=== PATIENT | female | born 1985 | race Caucasian/White ===

== ENCOUNTER 2017-02-08 20:21 | Outpatient (CLI) | payer SELFPAY ==
[2017-02-08 20:45] VITALS: BP 110/73
[2017-02-08] MEDS ORDERED: LACTATED RINGERS 1,000 ML ONE (21:04)
[2017-02-08] MEDS ORDERED: LACTATED RINGERS 1,000 ML IV ONE (22:02)
[2017-02-08 22:43] LABS: Bilirubin,Urine NEG (Negative); Blood,Urine MOD (Negative); Ketones,Urine NEG (Negative); Leukocyte Esterase,Urine NEG (Negative); Nitrite,Urine NEG (Negative); Protein,Urine <15 mg/dL mg/dL (Negative); RBC,Urine < 1.0 /HPF (0.0-6.0); Urobilinogen,Urine < 2.0 mg/dL (<2.0); WBC,Urine < 1.0 /HPF (0.0-6.0)
[2017-02-08] MEDS ORDERED: ROCEPHIN/NS 1 GM/50 ML 1 GM/50 ML BAG IV ONE (22:50)
== END 2017-02-08 23:50 | disposition home or self-care (01) ==
LOC: TRG 20:21
PROVIDERS: ATTEND Obstetrics & Gynecology
DX: O21.2 Late vomiting of pregnancy (principal); O26.892 Other specified pregnancy related conditions, second trimester; R50.9 Fever, unspecified; Z3A.26 26 weeks gestation of pregnancy
CPT/HCPCS: 59025; 81001; 96360; 96361; 96365; J0696; J7120

== ENCOUNTER 2017-03-01 02:31 | Inpatient (IN) | payer OTHER ==
[2017-03-01] MEDS ORDERED: LACTATED RINGERS 1,000 ML ONE (02:47)
[2017-03-01] MEDS ORDERED: LACTATED RINGERS 1,000 ML IV ONE (02:57)
[2017-03-01] MEDS ORDERED: TYLENOL PO ONE (02:58)
[2017-03-01] MEDS ORDERED: ZOFRAN IV ONE (02:58)
[2017-03-01] MEDS: LACTATED RINGERS 1,000 ML IV SCH ×4 (03:20→20:07)
[2017-03-01 03:55] LABS: Hematocrit 31.9 % (30.3-42.9); Hemoglobin 10.8 gm/dl (10.1-14.3); Mean Corpuscular HGB Conc 34 % (30-34); Mean Corpuscular Hemoglobin 32 pg (28-32); Mean Corpuscular Volume 94 fl (79-97); Platelet Count 177 K/mm3 (140-440); Red Blood Count 3.42 M/mm3 (3.65-5.03); Red Cell Distribution Width 13.4 % (13.2-15.2)
[2017-03-01 04:00] LABS: White Blood Count 21.2 K/mm3 (4.5-11.0)
[2017-03-01] MEDS ORDERED: Fluarix Quad 2017-2018(36 MOS+) IM ONE (04:11)
[2017-03-01] MEDS ORDERED: MYLICON PO PRN (04:14)
[2017-03-01] MEDS ORDERED: COLACE PO PRN (04:14)
[2017-03-01] MEDS ORDERED: XYLOCAINE 1% MPF 5 mL INFILTRATI ONE (04:18)
--- NOTE | 2017-03-01 04:24 | History and Physical Report ---
History of Present Illness Date of examination: 03/01/17 Chief complaint: Fever and chills History of present illness: 32-year-old 0-21 at 29+3 weeks presents with the above complaints since, she is a [facility]. Since her history is patient with sudden onset of vomiting, fever and chills on Tuesday night (~ 24 hrs ago). She denies diarrhea, no dysuria, no other family member are ill. She was seen here in the hospital on 02/08/2017 with similar complaints, she was discharged on Macrobid. She denies loss of fluid, vaginal bleeding or contractions Past History Past Medical History: no pertinent history Past Surgical History: no surgical history [employer]ING [employer]CH[employer]IAN History: denies: chlamydia, gonorrhea, hepatitis B, hepatitis C, herpes, HIV , syphilis, trichomonas Social history: single, full code. denies: smoking, alcohol abuse, prescription drug abuse, IV drug use - Obstetrical History Expected Date of Delivery: 05/14/17 Actual Gestation: 29 Week(s) 3 Day(s) : 4 Para: 1 Medications and Allergies Allergies Allergy/AdvReac Type Severity Reaction Status Date / Time b complex AdvReac Hives Uncoded 03/01/17 04:13 Home Medications Medication Instructions Recorded Confirmed Last Taken Type Acetaminophen [Shake That Ache] 500 mg PO PRN 03/01/17 03/01/17 02/28/17 History Vit-Fe Fumar-FA [ 1 tab PO QDAY 03/01/17 03/01/17 Unknown History Vitamin] Active Meds: Active Medications Acetaminophen (Tylenol) 650 mg PO Q4H PRN PRN Reason: Pain MILD(1-3)/Fever >100.5/GOMEZ Ceftriaxone Sodium (Rocephin) 1 gm IV Q24HR WICHO PRN Reason: Protocol Docusate Sodium (Colace) 100 mg PO Q12H PRN PRN Reason: Constipation Lactated Ringer's (Lactated Ringers) 1,000 mls @ 125 mls/hr IV DIRECT WICHO Last Admin: 03/01/17 03:20 Dose: 125 mls/hr Influenza Virus Vaccine Quadrival (Fluarix Quad [id number](36 Mos+)) 0.5 ml IM .ONCE ONE Stop: 03/01/17 04:12 Lidocaine (Xylocaine 1% Mpf 5 Ml) 2 ml INFILTRATI ONCE ONE Stop: 03/01/17 04:19 Multivitamins/Iron/Calcium ( Vitamin) 1 each PO QDAY WICHO Simethicone (Mylicon) 80 mg PO Q6H PRN PRN Reason: Gas pain Review of Systems Constitutional: fever, chills, malaise, no weakness Cardiovascular: no chest pain, no lightheadedness, no shortness of breath Respiratory: no cough with sputum, no excessive sputum, no shortness of breath, no dyspnea on exertion Gastrointestinal: nausea, vomiting, no abdominal pain, no diarrhea Genitourinary: no vaginal bleeding, no vaginal discharge, no leakage of fluid Musculoskeletal: neck stiffness - Vital Signs Vital signs: Vital Signs Temp Resp 103.2 F H 40 H 03/01/17 02:41 03/01/17 02:41 Temp Pulse Resp BP Pulse Ox 102.0 F H 136 H 38 H 94/48 98 03/01/17 03:44 03/01/17 04:01 03/01/17 03:44 03/01/17 03:54 03/01/17 04:01 - Physical Exam Cardiovascular: Normal S1, Normal S2, Other (tachycardia) Lungs: Positive: Clear to auscultation, Normal air movement Abdomen: Positive: normal appearance, soft. Negative: distention, tenderness, guarding, rigidity Uterus: Positive: enlarged (EFW ~ 2000). Negative: tender - Obstetrical FHR: category 2 Results Result Diagrams: 03/01/17 03:10 Abnormal lab results 03/01/17 Range/Units 03:10 WBC 21.2 H (4.5-11.0) K/mm3 RBC 3.42 L (3.65-5.03) M/mm3 All other labs normal. Assessment and Plan A: 32-year-old at 29+wks with fever and chills ?Flu ?UTI -Cat 2 tracing w/ tachycardia Issues -[place]awk speaker only -Fever and chills P: -Admit -Obtain labs including urine and blood culture -Rapid flu swab -IV Rocephin -IV fluids and antipyretics -Disposition after results available - Patient Problems (1) 29 weeks gestation of Current Visit: Yes Status: Acute (2) Fever and chills Current Visit: Yes Status: Acute
[2017-03-01 04:29] LABS: Bilirubin,Urine NEG (Negative); Blood,Urine NEG (Negative); Ketones,Urine 80 mg/dL (Negative); Leukocyte Esterase,Urine NEG (Negative); Mucus,Urine 2+ /HPF; Nitrite,Urine NEG (Negative)
[2017-03-01 04:31] LABS: Protein,Urine >500 mg/dL (Negative)
[2017-03-01] MEDS: ROCEPHIN/NS 1 GM/50 ML 1 GM/50 ML BAG IV SCH (05:00)
[2017-03-01 05:41] LABS: Anisocytosis 1+; Basophils % (Manual) 0 % (0.0-1.8); Blastocytes % (Manual) 0 %; Eosinophils % (Manual) 0 % (0.0-4.3); Stomatocytes Few
[2017-03-01 05:42] LABS: Diff Status Complete
[2017-03-01] MEDS: TYLENOL PO PRN ×3 (09:46→23:56)
[2017-03-01] MEDS ORDERED: ROCEPHIN IV SCH (10:00)
[2017-03-01] MEDS: TAMIFLU PO SCH ×2 (14:44→22:00)
[2017-03-01] MEDS: PRENATAL VITAMIN PO SCH (18:08)
[2017-03-02] MEDS: LACTATED RINGERS 1,000 ML IV SCH ×3 (03:59→22:01)
[2017-03-02] MEDS: ROCEPHIN/NS 1 GM/50 ML 1 GM/50 ML BAG IV SCH (04:58)
[2017-03-02] MEDS: TYLENOL PO PRN ×2 (08:17→21:54)
[2017-03-02] MEDS ORDERED: ZOFRAN ONE (10:44)
[2017-03-02] MEDS: TAMIFLU PO SCH ×2 (10:47→21:51)
[2017-03-02] MEDS: PRENATAL VITAMIN PO SCH (10:48)
[2017-03-02] MEDS ORDERED: ZOFRAN IV PRN (11:00)
--- NOTE | 2017-03-02 11:04 | Progress Note ---
Assessment and Plan - Patient Problems (1) 29 weeks gestation of Onset Date: 03/02/17 Current Visit: Yes Status: Acute Plan to address problem: A: IUP @ 29 4/7 weeks Suspected Influenza - improved P: Continue present management Anticipate discharge in 24hrs if remains afebrile (2) Fever and chills Onset Date: 03/02/17 Current Visit: Yes Status: Acute Subjective - Subjective Date of service: 03/02/17 Principal diagnosis: IUP @ 29 4/7 weeks; Suspected Influenza Interval history: No complaints. Feeling a bit better Patient reports: movement normal, no new complaints, no loss of fluid, no vaginal bleeding, no contractions Objective - Vital Signs Vital Signs: Vital Signs - 12hr 03/01/17 03/02/17 03/02/17 23:56 05:00 07:33 Temperature 97.6 F Pulse Rate 114 H Respiratory 18 Rate Blood Pressure O2 Sat by Pulse 99 Oximetry 03/02/17 03/02/17 03/02/17 07:34 07:35 07:38 Temperature 99.7 F H Pulse Rate 110 H 111 H 111 H Respiratory 28 H Rate Blood Pressure 104/67 104/67 O2 Sat by Pulse 99 Oximetry 03/02/17 03/02/17 03/02/17 07:43 07:48 07:53 Temperature Pulse Rate 117 H 68 117 H Respiratory Rate Blood Pressure O2 Sat by Pulse 97 97 100 Oximetry 03/02/17 03/02/17 03/02/17 07:58 08:03 08:08 Temperature Pulse Rate 111 H 114 H 112 H Respiratory Rate Blood Pressure O2 Sat by Pulse 100 99 99 Oximetry 03/02/17 03/02/17 03/02/17 08:13 08:31 08:36 Temperature Pulse Rate 117 H 110 H 110 H Respiratory Rate Blood Pressure O2 Sat by Pulse 99 99 97 Oximetry 03/02/17 03/02/17 03/02/17 08:41 08:45 08:46 Temperature Pulse Rate 111 H 109 H 115 H Respiratory Rate Blood Pressure O2 Sat by Pulse 97 94 95 Oximetry 03/02/17 03/02/17 03/02/17 08:51 08:54 08:56 Temperature Pulse Rate 107 H 109 H 109 H Respiratory Rate Blood Pressure O2 Sat by Pulse 96 94 98 Oximetry 03/02/17 03/02/17 03/02/17 09:02 09:07 09:11 Temperature Pulse Rate 111 H 109 H 107 H Respiratory Rate Blood Pressure O2 Sat by Pulse 97 96 94 Oximetry 03/02/17 03/02/17 03/02/17 09:12 09:17 09:22 Temperature Pulse Rate 111 H 119 H 116 H Respiratory Rate Blood Pressure O2 Sat by Pulse 95 95 95 Oximetry 03/02/17 03/02/17 03/02/17 09:27 09:36 09:41 Temperature Pulse Rate 115 H 108 H 117 H Respiratory Rate Blood Pressure O2 Sat by Pulse 94 97 96 Oximetry 03/02/17 03/02/17 03/02/17 09:46 09:54 09:59 Temperature Pulse Rate 109 H 109 H 102 H Respiratory Rate Blood Pressure O2 Sat by Pulse 96 97 97 Oximetry 03/02/17 03/02/17 03/02/17 10:04 10:14 10:19 Temperature Pulse Rate 106 H 100 H 105 H Respiratory Rate Blood Pressure O2 Sat by Pulse 98 98 97 Oximetry 03/02/17 03/02/17 03/02/17 10:24 10:29 10:34 Temperature Pulse Rate 100 H 104 H 97 H Respiratory Rate Blood Pressure O2 Sat by Pulse 97 97 96 Oximetry 03/02/17 03/02/17 03/02/17 10:39 10:44 10:49 Temperature Pulse Rate 96 H 94 H 104 H Respiratory Rate Blood Pressure O2 Sat by Pulse 97 96 97 Oximetry 03/02/17 03/02/17 10:54 10:59 Temperature Pulse Rate 112 H 104 H Respiratory Rate Blood Pressure O2 Sat by Pulse 98 99 Oximetry - Exam Cardiovascular: Regular rate Lungs: Clear to auscultation Abdomen: Present: normal appearance, soft Uterus: Present: normal FHR: category 1 Uterine Contraction Monitor Mode: External - Labs Labs: Abnormal Labs 03/01/17 03:10 WBC 21.2 H RBC 3.42 L Lymphocytes % (Manual) 7.0 L Seg Neutrophils # Man 14.6 H Monocytes # (Manual) 1.1 H Laboratory Tests 03/01/17 03/01/17 03/01/17 03:10 03:10 04:45 WBC 21.2 H RBC 3.42 L Hgb 10.8 Hct 31.9 MCV 94 MCH 32 MCHC 34 RDW 13.4 Plt Count 177 Add Manual Diff Complete Total Counted 100 Seg Neuts % (Manual) 69.0 Band Neutrophils % 19.0 Lymphocytes % (Manual) 7.0 L Reactive Lymphs % (Man) 0 Monocytes % (Manual) 5.0 Eosinophils % (Manual) 0 Basophils % (Manual) 0 Metamyelocytes % 0 Myelocytes % 0 Promyelocytes % 0 Blast Cells % 0 Nucleated RBC % Not Reportable Seg Neutrophils # Man 14.6 H Band Neutrophils # 4.0 Lymphocytes # (Manual) 1.5 Abs React Lymphs (Man) 0.0 Monocytes # (Manual) 1.1 H Eosinophils # (Manual) 0.0 Basophils # (Manual) 0.0 Metamyelocytes # 0.0 Myelocytes # 0.0 Promyelocytes # 0.0 Blast Cells # 0.0 WBC Morphology Not Reportable Hypersegmented Neuts Not Reportable Hyposegmented Neuts Not Reportable Hypogranular Neuts Not Reportable Smudge Cells Not Reportable Toxic Granulation Not Reportable Toxic Vacuolation Not Reportable Dohle Bodies Not Reportable Pelger-Huet Anomaly Not Reportable Reyes Rods Not Reportable Platelet Estimate Appears normal Clumped Platelets Not Reportable Plt Clumps, EDTA Not Reportable Large Platelets Not Reportable Giant Platelets Not Reportable Platelet Satelliting Not Reportable Plt Morphology Comment Not Reportable RBC Morphology Not Reportable Dimorphic RBCs Not Reportable Polychromasia Not Reportable Hypochromasia Not Reportable Poikilocytosis Not Reportable Anisocytosis 1+ Microcytosis Not Reportable Macrocytosis Not Reportable Spherocytes Not Reportable Pappenheimer Bodies Not Reportable Sickle Cells Not Reportable Target Cells Not Reportable Tear Drop Cells Not Reportable Ovalocytes Not Reportable Stomatocytes Few Helmet Cells Not Reportable [place] Bodies Not Reportable [place] Rings Not Reportable [place] Cells Not Reportable Bite Cells Not Reportable Crenated Cell Not Reportable Elliptocytes Not Reportable Acanthocytes (Spur) Not Reportable Rouleaux Not Reportable Hemoglobin C Crystals Not Reportable Schistocytes Not Reportable Malaria parasites Not Reportable Anton Bodies Not Reportable Hem Pathologist Commnt No Urine Color Lexie Urine Turbidity Clear Urine pH 6.0 Ur Specific [place] 1.024 Urine Protein >500 Urine Glucose (UA) Neg Urine Ketones 80 Urine Blood Neg Urine Nitrite Neg Urine Bilirubin Neg Urine Urobilinogen 2.0 Ur Leukocyte Esterase Neg Urine WBC (Auto) 6.0 Urine RBC (Auto) 2.0 U Epithel Cells (Auto) 7.0 Hyaline Casts 1 Urine Mucus 2+ Blood Type O POSITIVE Antibody Screen Negative 03/02/17 13:55 WBC 8.1 RBC 3.02 L Hgb 9.7 L Hct 28.2 L MCV 93 MCH 32 MCHC 35 H RDW 13.5 Plt Count 152 Add Manual Diff Total Counted Seg Neuts % (Manual) Band Neutrophils % Lymphocytes % (Manual) Reactive Lymphs % (Man) Monocytes % (Manual) Eosinophils % (Manual) Basophils % (Manual) Metamyelocytes % Myelocytes % Promyelocytes % Blast Cells % Nucleated RBC % Seg Neutrophils # Man Band Neutrophils # Lymphocytes # (Manual) Abs React Lymphs (Man) Monocytes # (Manual) Eosinophils # (Manual) Basophils # (Manual) Metamyelocytes # Myelocytes # Promyelocytes # Blast Cells # WBC Morphology Hypersegmented Neuts Hyposegmented Neuts Hypogranular Neuts Smudge Cells Toxic Granulation Toxic Vacuolation Dohle Bodies Pelger-Huet Anomaly Reyes Rods Platelet Estimate Clumped Platelets Plt Clumps, EDTA Large Platelets Giant Platelets Platelet Satelliting Plt Morphology Comment RBC Morphology Dimorphic RBCs Polychromasia Hypochromasia Poikilocytosis Anisocytosis Microcytosis Macrocytosis Spherocytes Pappenheimer Bodies Sickle Cells Target Cells Tear Drop Cells Ovalocytes Stomatocytes Helmet Cells [place] Bodies [place] Rings Mica Cells Bite Cells Crenated Cell Elliptocytes Acanthocytes (Spur) Rouleaux Hemoglobin C Crystals Schistocytes Malaria parasites Anton Bodies Hem Pathologist Commnt Urine Color Urine Turbidity Urine pH Ur Specific [place] Urine Protein Urine Glucose (UA) Urine Ketones Urine Blood Urine Nitrite Urine Bilirubin Urine Urobilinogen Ur Leukocyte Esterase Urine WBC (Auto) Urine RBC (Auto) U Epithel Cells (Auto) Hyaline Casts Urine Mucus Blood Type Antibody Screen Microbiology 03/01/17 03:10 Urine,Catheterized - Straight Catheter Urine Culture - Preliminary NO GROWTH AFTER 24 HOURS 03/01/17 04:13 Peripheral/Venous Blood Culture - Preliminary NO GROWTH AFTER 24 HOURS 03/01/17 04:37 Peripheral/Venous Blood Culture - Preliminary NO GROWTH AFTER 24 HOURS
--- NOTE | 2017-03-02 12:48 | Admit Criteria Form ---
Admission Criteria Documentation: OBSTETRIC AND GYNECOLOGIC DISEASE GRG Clinical Indications for Admission to Inpatient Care (Place 'X' for any and all applicable criteria): Hospital admission is needed for appropriate care of the patient because of 1 or more of the following (1)(2)(3): [ ]I. Hemodynamic instability, as indicated by 1 or more of the following (1)( 2)(3)(4)(5): [ ]a) Vital signs or other findings not as expected for chronic patient condition or baseline [ ]b) Instability indicated by 1 or more of the following: [ ]i) Hypotension [ ]ii) Symptomatic tachycardia unresponsive to treatment (eg, analgesia, fluids, sedation as indicated) [ ]iii) Inadequate perfusion indicated by 1 or more of the following: [ ]A. Lactic acidosis (greater than 2 mmol/ L) [ ]B. New abnormal capillary refill ( greater than 3 seconds) [ ]C. Reduced urine output [ ]D. New altered mental status [ ]iv) Orthostatic vital sign changes unresponsive to treatment (eg, fluids) [ ]v) Multiple IV fluid boluses required to maintain adequate blood pressure or perfusion [ ]vi) IV inotropic or vasopressor medication required to maintain adequate blood pressure or perfusion [ ]II. Obstetric infection requiring hospitalization indicated by 1 or more of the following(13)(14): [ ]a) Chorioamnionitis [ ]b) Endometritis (except mild endometritis) [ ]c) Pelvic abscess [ ]d) Peritonitis [ ]e) Septic pelvic thrombophlebitis [ ]III. Amniotic fluid or pulmonary embolism(4)(5)(6) [ ]IV. Suspected peritonitis or ectopic requiring monitoring beyond scope of 24 hours or observation care(7)(8) [ ]V. compromise requiring hospitalization indicated by ALL of the following(9)(10): [ ]a) compromise indicated by 1 or more of the following(11): [ ]i) Abnormal heart rate monitoring [ ]ii) Abnormal contraction stress test [ ]iii) Abnormal biophysical profile [ ]iv) Abnormal Doppler flow in vessels (ie, Doppler velocimetry) (12) [ ]b) Persistence of compromise indicators during evaluation and observation monitoring [ ]. Ovarian hyperstimulation syndrome requiring hospitalization[A] indicated by ALL of the following(15): [ ]a) Recent ovarian stimulation with gonadotropins, or evidence on ultrasound of spontaneous emergence of large number of ovarian follicles [ ]b) Evidence of severe ovarian hyperstimulation syndrome indicated by 1 or more of the following: [ ]i) Abdominal pain unresponsive to oral therapy [ ]ii) Acute respiratory distress syndrome [ ]iii) Electrolyte imbalance ( eg, hyponatremia, hyperkalemia) [ ]iv) Elevated liver enzymes [ ]v) Evidence of thromboembolism [ ]vi) Hemoconcentration (hematocrit greater than 45 % (0.45)) [ ]vii) Inability to maintain oral intake adequate to prevent hemoconcentration [ ]viii) Marked hypotension from baseline (eg, SBP 20 mmHg below patients usual pressure) [ ]ix) Oliguria or anuria [ ]x) Ovarian torsion [ ]xi) Pleural or pericardial effusion on x-ray or echocardiogram [ ]xii) Rapid increase in serum creatinine to greater than 1.2 mg/dL (106 micromoles/L) or creatinine clearance less than 50 mL/min/1.73m2 (0.84 mL/ sec/1.73m2) [ ]xiii) Ruptured ovarian cyst with hemorrhage [ ]xiv) Severe abdominal pain or peritoneal signs [ ]xv) Tense ascites that cannot be managed with paracentesis in outpatient setting [ ]VII.Pelvic infection requiring hospitalization indicated by 1 or more of the following (16): [ ]a) Outpatient treatment has failed or is not appropriate (eg, inpatient monitoring required) [ ]b) Pelvic abscess [ ]c) Surgical emergency cannot be excluded (eg, rigid abdomen) [ ]d) Vomiting precluding outpatient and observation care management VIII. loss complications requiring inpatient medical treatment indicated by 1 or more of the following (4)(7)(9): [ ]a) Fever [ ]b) Peritonitis [ ]c) Sepsis [ ]d) Severe abdominal pain [ ]IX. or patient requiring monitoring for severe heart failure, pulmonary disease, or other comorbid condition (eg, peripartum cardiomyopathy) (4)(17) [ ]X. patient with rupture of membranes requiring hospitalization indicated by ANY ONE of the following: [ ]a) Chorioamnionitis, cloudy amniotic fluid, or other evidence of infection [ ]b) compromise or other need for monitoring (11) [ ]c) Gestation longer than 23 weeks and ANY ONE of the following: [ ]i) Abnormal (noncephalic) presentation [ ]ii) Inadequate home environment (eg, home too far from hospital, unable to rapidly return to hospital) [ ]d) Temperature greater than 100.4 degrees F (38 degrees C)( oral) [ ]e) Threatened labor requiring monitoring beyond scope (eg, over 24 hours) of observation Care [ ] XI. complications, including severe lacerations, infections, or retained placenta (19) [ ] XII.Uterine bleeding with high-risk features indicated by ANY ONE of the following (4): [ ]a) Active major hemorrhage (eg, hemorrhage) [ ]b) Coagulopathy with active bleeding [ ]c) Gestational trophoblastic disease (eg, molar ) (20 ) [ ]d) (longer than 23 weeks) and ANY ONE of the following: [ ]i) Pain [ ]ii) Placental abruption, known or suspected [ ]iii) Placenta accrete, known or suspected(21) [ ]iv) Placenta previa, known or suspected [ ]v) Vasa previa [ ]e) Severe anemia [X ]XIII. Obstetric or Gynecologic Disease, condition or symptom for which ANY ONE of the following: [ X]a) Emergency and observation care have failed or are not considered appropriate ( Also use General Criteria: Observation Care Criteria as appropriate) [ ]b) Presence of a General Admission Criteria or Pediatric General Admission Criteria The original [facility] [employer] content created by [facility] has been revised. The portions of the content which have been revised are identified through the use of italic text or in bold, and [facility] has neither reviewed nor approved the modified material.All other unmodified content is copyright [facility]. Please see references footnoted in the original [facility] edition 2016 Admission Criteria Met: Yes
[2017-03-02 14:13] LABS: Hematocrit 28.2 % (30.3-42.9); Hemoglobin 9.7 gm/dl (10.1-14.3); Mean Corpuscular HGB Conc 35 % (30-34); Mean Corpuscular Hemoglobin 32 pg (28-32); Mean Corpuscular Volume 93 fl (79-97); Platelet Count 152 K/mm3 (140-440); Red Blood Count 3.02 M/mm3 (3.65-5.03); Red Cell Distribution Width 13.5 % (13.2-15.2); White Blood Count 8.1 K/mm3 (4.5-11.0)
[2017-03-03] MEDS: ROCEPHIN/NS 1 GM/50 ML 1 GM/50 ML BAG IV SCH (04:38)
[2017-03-03] MEDS: LACTATED RINGERS 1,000 ML IV SCH (05:54)
[2017-03-03] MEDS: PRENATAL VITAMIN PO SCH (09:12)
[2017-03-03] MEDS: TAMIFLU PO SCH (09:13)
--- NOTE | 2017-03-03 10:05 | Discharge Summary ---
Providers - Providers Date of Admission: 03/01/17 05:02 Date of discharge: 03/03/17 Attending physician: PANCHO WEST MD Primary care physician: PANCHO WEST MD Hospitalization Reason for admission: IUP - , other (Suspected flu) Other procedures: none complications: none Discharge diagnosis: other (IUP @ 29 5/7 weeks; Suspect Flu - improved) Hospital course: Pt is a 32-year-old AF 0-21 at 29+3 weeks who presented with complaints of sudden onset of vomiting, fever and chills on Tuesday night. She denied diarrhea, no dysuria, no other family member are ill. She was admitted for IV Rocephin, IV hydration and received Tamiflu and improved symptomatically. Her WBC decreased from 21.2 down to 8.1, and blood and urine cultures were negative x 48hrs, and Influenza A and B cultures were also negative. She will therefore be discharged to home in stable condition. Condition at discharge: Good Disposition: DC-01 TO HOME OR SELFCARE - Discharge Diagnoses (1) 29 weeks gestation of Status: Acute (2) Fever and chills Status: Resolved Plan - Provider Discharge Summary Activity: routine, no sex for 6 weeks, no heavy lifting 4 weeks, no strenuous exercise Diet: routine Instructions: routine Additional instructions: [] Smoking cessation referral if applicable(refer to patient education folder for contact #) [] Refer to [facility] Booklet Call your doctor immediately for: * Fever > 100.5 * Heavy vaginal bleeding ( >1 pad per hour) * Severe persistent headache * Shortness of breath * Reddened, hot, painful area to leg or breast * Drainage or odor from incision. * Keep incision clean and dry at all times and follow doctor's instructions regarding bathing/showering - Follow up plan Follow up: PANCHO FRASER MD [Primary Care Provider] - 7 Days
[2017-03-03 10:40] VITALS: BP 115/56
== END 2017-03-03 11:27 | disposition home or self-care (01) | DRG 781 ==
LOC: TRG 02:31 → LD 05:02
PROVIDERS: ADMIT Obstetrics & Gynecology; ATTEND Obstetrics & Gynecology
PROC: 3E0234Z Introduction of Serum, Toxoid and Vaccine into Muscle, Percutaneous Approach (ICD-10-PCS; principal; 2017-03-01)
DX: O26.893 Other specified pregnancy related conditions, third trimester (principal); O76 Abnormality in fetal heart rate and rhythm complicating labor and delivery; R50.9 Fever, unspecified; O60.03 Preterm labor without delivery, third trimester; Z3A.29 29 weeks gestation of pregnancy; Z23 Encounter for immunization
CPT/HCPCS: 36415; 81001; 85007; 85025; 85027; 86850; 86900; 86901; 87040; 87086; 87400; 90686; J0696; J2405; J7120

== ENCOUNTER 2017-04-15 13:27 | Inpatient (IN) | payer OTHER ==
[2017-04-15] MEDS ORDERED: MINERAL OIL PO PRN (15:50)
[2017-04-15] MEDS ORDERED: ePHEDrine SULFATE IV PRN (15:50)
[2017-04-15] MEDS ORDERED: BRETHINE IVP PRN (15:50)
[2017-04-15] MEDS ORDERED: CERVIDIL VG ONE (15:50)
[2017-04-15] MEDS ORDERED: SUBLIMAZE IV PRN (15:50)
[2017-04-15] MEDS ORDERED: POLYCILLIN/NS 2 GM/100 ML 2 GM/100 ML BAG IV ONE (15:50)
[2017-04-15] MEDS ORDERED: XYLOCAINE 2% INFILTRATI ONE (15:50)
[2017-04-15] MEDS ORDERED: BRETHINE SUB-Q PRN (15:50)
[2017-04-15] MEDS ORDERED: PITOCin/NS 20 UNIT/1000ML DRIP 20 UNITS/1,000 ML BAG IV SCH (16:00)
[2017-04-15 17:08] LABS: Hematocrit 34.9 % (30.3-42.9); Hemoglobin 12.1 gm/dl (10.1-14.3); Mean Corpuscular HGB Conc 35 % (30-34); Mean Corpuscular Hemoglobin 32 pg (28-32); Mean Corpuscular Volume 93 fl (79-97); Platelet Count 192 K/mm3 (140-440); Red Blood Count 3.76 M/mm3 (3.65-5.03); Red Cell Distribution Width 13.7 % (13.2-15.2); White Blood Count 9.6 K/mm3 (4.5-11.0)
--- NOTE | 2017-04-15 21:15 | History and Physical Report ---
History of Present Illness Date of examination: 04/15/17 Date of admission: 04/15/17 13:28 Chief complaint: Cholestasis of at 36 weeks gestation History of present illness: 32 year old presents to L&D for induction of labor recommended by [facility] for cholestasis of . APA note is on the chart and recommends delivery due to cholestasis of . EDC 05/12/17. Past History Past Medical History: no pertinent history Past Surgical History: no surgical history CAT SITTER History: abnormal PAP smear Family/Genetic History: diabetes, hypertension Social history: , lives with family, full code. denies: smoking, alcohol abuse, prescription drug abuse, IV drug use - Obstetrical History Expected Date of Delivery: 05/12/17 Actual Gestation: 36 Week(s) 1 Day(s) : 4 Para: 1 Hx # Term Pregnancies: 1 Number of Pregnancies: 1 Spontaneous Abortions: 2 Induced : 0 Number of Living Children: 1 Medications and Allergies Allergies Allergy/AdvReac Type Severity Reaction Status Date / Time b complex AdvReac Hives Uncoded 03/01/17 04:13 Home Medications Medication Instructions Recorded Confirmed Last Taken Type Acetaminophen [Shake That Ache] 500 mg PO PRN 03/01/17 03/01/17 02/28/17 History Vit-Fe Fumar-FA [ 1 tab PO QDAY 03/01/17 03/01/17 Unknown History Vitamin] Active Meds: Active Medications Fentanyl (Sublimaze) 100 mcg IV Q2H PRN PRN Reason: Labor Pain Ampicillin Sodium (Polycillin/Ns 1 Gm/50 Ml) 1 gm in 50 mls @ 100 mls/hr IV Q4HR WICHO PRN Reason: Protocol Lactated Ringer's (Lactated Ringers) 1,000 mls @ 125 mls/hr IV DIRECT WICHO Oxytocin/Sodium Chloride (Pitocin/Ns 20 Unit/1000ml Drip) 20 units in 1,000 mls @ 125 mls/hr IV DIRECT WICHO Mineral Oil (Mineral Oil) 30 ml PO QHS PRN PRN Reason: Constipation Review of Systems All systems: negative (induction of labor) - Vital Signs Vital signs: Vital Signs Pulse BP 75 117/73 04/15/17 15:14 04/15/17 15:14 Temp Pulse Resp BP Pulse Ox 88 101/55 04/15/17 20:34 04/15/17 20:34 - Physical Exam Breasts: Positive: deferred Cardiovascular: Regular rate, Normal S1, Normal S2 Lungs: Positive: Clear to auscultation Abdomen: Positive: normal appearance, soft. Negative: distention, tenderness, guarding Genitourinary (Female): Positive: normal external genitalia. Negative: perineal /vulvar lesions Uterus: Positive: enlarged. Negative: tender Extremities: Positive: normal. Negative: tenderness, edema - Obstetrical FHR: category 1 Uterine Contraction Monitor Mode: External Cervical Dilatation: 1 Cervical Effacement Percentage: 40 station: -2 Uterine Contraction Pattern: Absent Results Result Diagrams: 04/15/17 16:47 Abnormal lab results 04/15/17 Range/Units 16:47 MCHC 35 H (30-34) % All other labs normal. Assessment and Plan A: at 36 weeks, 1 day gestation. GBS positive. Cholestasis of . Abnormal quad screen during (elevated risk for Down Syndrome). P: Admit. Cervidil for Cervical ripening. GBS prophylaxis. Patient consented to Cervidil cervical ripening.
[2017-04-16] MEDS: LACTATED RINGERS 1,000 ML IV SCH ×2 (02:06→12:05)
[2017-04-16] MEDS ORDERED: POLYCILLIN/NS 2 GM/100 ML 2 GM/100 ML BAG IV ONE (02:24)
[2017-04-16] MEDS: POLYCILLIN/NS 1 GM/50 ML 1 GM/50 ML BAG IV SCH ×2 (06:31→12:04)
[2017-04-16] MEDS ORDERED: PITOCin/NS 30 UNIT/500ML 30 UNITS/500 ML BAG IV SCH (07:00)
--- NOTE | 2017-04-16 09:43 | Event Note ---
Date: 04/16/17 Patient is receiving Pitocin for induction of labor. FHR tracing is reassuring. Cervix is 2/70/-1. Patient is afebrile and vital signs are stable.
--- NOTE | 2017-04-16 18:56 | Event Note ---
Date: 04/16/17 SVE /-2. Reassuring heart rate tracing. Patient wants to continue Pitocin. Will continue Pitocin for 2 more hours and recheck cervix. If no change at that time, will give patient a break from Pitocin. Discussed this plan with patient and family.
[2017-04-17] MEDS: LACTATED RINGERS 1,000 ML IV SCH ×2 (05:15→12:38)
--- NOTE | 2017-04-17 12:08 | Progress Note ---
Assessment and Plan A: at 36 weeks, 3 days gestation. Cholestasis of . GBS positive. P: Continue GBS prophylaxis. Pitocin induction of labor. AROM when station is lower. Anticipate today or tonight. Subjective - Subjective Date of service: 04/17/17 Principal diagnosis: at 36 weeks, 3 days gestation; induction of labor Interval history: Patient is being induced for cholestasis of . Patient reports active movement. She denies leaking of fluid or vaginal bleeding. Patient reports: movement normal, no new complaints, no loss of fluid, no vaginal bleeding Objective - Vital Signs Vital Signs: Vital Signs - 12hr 04/17/17 04/17/17 04/17/17 00:11 00:16 00:21 Pulse Rate 82 83 83 Blood Pressure O2 Sat by Pulse 96 96 96 Oximetry 04/17/17 04/17/17 04/17/17 00:26 00:31 00:36 Pulse Rate 82 88 83 Blood Pressure O2 Sat by Pulse 96 96 96 Oximetry 04/17/17 04/17/17 04/17/17 00:41 00:46 00:51 Pulse Rate 88 90 82 Blood Pressure O2 Sat by Pulse 97 98 97 Oximetry 04/17/17 04/17/17 04/17/17 00:56 01:01 01:06 Pulse Rate 91 H 81 89 Blood Pressure O2 Sat by Pulse 96 96 98 Oximetry 04/17/17 04/17/17 04/17/17 01:11 01:16 01:21 Pulse Rate 84 85 80 Blood Pressure O2 Sat by Pulse 97 97 97 Oximetry 04/17/17 04/17/17 04/17/17 01:26 01:31 01:36 Pulse Rate 80 76 77 Blood Pressure O2 Sat by Pulse 97 98 98 Oximetry 04/17/17 04/17/17 04/17/17 01:41 01:46 01:51 Pulse Rate 80 79 86 Blood Pressure O2 Sat by Pulse 98 97 97 Oximetry 04/17/17 04/17/17 04/17/17 01:56 02:01 02:06 Pulse Rate 81 85 102 H Blood Pressure O2 Sat by Pulse 97 98 98 Oximetry 04/17/17 04/17/17 04/17/17 02:14 02:19 02:24 Pulse Rate 78 80 75 Blood Pressure O2 Sat by Pulse 98 99 98 Oximetry 04/17/17 04/17/1704/17/17 02:29 02:34 02:39 Pulse Rate 88 76 72 Blood Pressure O2 Sat by Pulse 98 98 98 Oximetry 04/17/17 04/17/17 04/17/17 02:44 02:49 02:54 Pulse Rate 80 84 79 Blood Pressure O2 Sat by Pulse 98 97 97 Oximetry 04/17/17 04/17/17 04/17/17 02:59 03:04 03:09 Pulse Rate 80 93 H 82 Blood Pressure O2 Sat by Pulse 97 98 97 Oximetry 04/17/17 04/17/17 04/17/17 03:14 03:19 03:24 Pulse Rate 81 80 86 Blood Pressure O2 Sat by Pulse 97 97 97 Oximetry 04/17/17 04/17/17 04/17/17 03:29 03:34 03:39 Pulse Rate 82 80 83 Blood Pressure O2 Sat by Pulse 98 98 97 Oximetry 04/17/17 04/17/17 04/17/17 03:44 03:49 03:54 Pulse Rate 85 88 82 Blood Pressure O2 Sat by Pulse 98 97 97 Oximetry 04/17/17 04/17/17 04/17/17 03:59 04:04 04:10 Pulse Rate 73 85 83 Blood Pressure O2 Sat by Pulse 97 97 98 Oximetry 04/17/17 04/17/17 04/17/17 04:19 04:24 04:29 Pulse Rate 98 H 78 79 Blood Pressure O2 Sat by Pulse 98 99 98 Oximetry 04/17/17 04/17/17 04/17/17 04:34 04:39 04:44 Pulse Rate 84 79 84 Blood Pressure O2 Sat by Pulse 98 98 98 Oximetry 04/17/17 04/17/17 04/17/17 04:49 04:54 04:59 Pulse Rate 79 81 77 Blood Pressure O2 Sat by Pulse 98 98 99 Oximetry 04/17/17 04/17/17 04/17/17 05:04 05:09 05:14 Pulse Rate 78 76 73 Blood Pressure O2 Sat by Pulse 98 98 99 Oximetry 04/17/17 04/17/17 04/17/17 05:19 05:24 05:29 Pulse Rate 78 79 70 Blood Pressure O2 Sat by Pulse 97 98 96 Oximetry 04/17/17 04/17/17 04/17/17 05:34 05:39 05:46 Pulse Rate 77 75 Blood Pressure O2 Sat by Pulse 96 97 98 Oximetry 04/17/17 04/17/17 04/17/17 05:51 05:56 06:01 Pulse Rate 66 70 67 Blood Pressure O2 Sat by Pulse 98 98 98 Oximetry 04/17/17 04/17/17 04/17/17 06:06 06:11 06:16 Pulse Rate 71 73 86 Blood Pressure O2 Sat by Pulse 98 99 98 Oximetry 04/17/17 04/17/17 04/17/17 06:21 06:26 06:31 Pulse Rate 72 75 74 Blood Pressure O2 Sat by Pulse 97 98 97 Oximetry 04/17/17 04/17/17 04/17/17 06:36 06:41 06:46 Pulse Rate 73 72 80 Blood Pressure O2 Sat by Pulse 98 97 97 Oximetry 04/17/17 04/17/17 04/17/17 06:51 06:56 07:01 Pulse Rate 77 76 72 Blood Pressure O2 Sat by Pulse 98 97 98 Oximetry 04/17/17 04/17/17 04/17/17 07:06 07:11 07:16 Pulse Rate 75 73 77 Blood Pressure O2 Sat by Pulse 97 97 97 Oximetry 04/17/17 04/17/17 04/17/17 07:21 07:26 07:31 Pulse Rate 69 79 80 Blood Pressure O2 Sat by Pulse 97 97 98 Oximetry 04/17/17 04/17/17 04/17/17 07:36 07:41 07:46 Pulse Rate 72 74 71 Blood Pressure O2 Sat by Pulse 97 97 97 Oximetry 04/17/17 04/17/17 04/17/17 07:51 07:56 08:01 Pulse Rate 70 66 71 Blood Pressure O2 Sat by Pulse 98 98 97 Oximetry 04/17/17 04/17/17 04/17/17 08:06 08:11 08:16 Pulse Rate 71 69 71 Blood Pressure O2 Sat by Pulse 98 97 98 Oximetry 04/17/17 04/17/17 04/17/17 08:21 08:26 08:31 Pulse Rate 73 71 73 Blood Pressure O2 Sat by Pulse 98 98 98 Oximetry 04/17/17 04/17/17 04/17/17 08:36 08:41 08:46 Pulse Rate 67 68 73 Blood Pressure O2 Sat by Pulse 99 98 99 Oximetry 10/04/17/17 04/17/17 08:51 08:56 09:01 Pulse Rate 71 70 69 Blood Pressure O2 Sat by Pulse 98 99 98 Oximetry 04/17/17 04/17/17 04/17/17 09:06 09:11 09:16 Pulse Rate 69 72 70 Blood Pressure O2 Sat by Pulse 99 98 99 Oximetry 04/17/17 04/17/17 04/17/17 09:22 09:27 09:32 Pulse Rate 99 H 78 Blood Pressure O2 Sat by Pulse 94 98 98 Oximetry 04/17/17 04/17/17 04/17/17 09:37 09:42 09:47 Pulse Rate 83 77 89 Blood Pressure O2 Sat by Pulse 99 98 99 Oximetry 04/17/17 04/17/17 04/17/17 09:52 09:57 10:02 Pulse Rate 84 77 84 Blood Pressure O2 Sat by Pulse 99 99 100 Oximetry 04/17/17 04/17/17 04/17/17 10:07 10:12 10:17 Pulse Rate 72 91 H 86 Blood Pressure O2 Sat by Pulse 100 98 99 Oximetry 04/17/17 04/17/17 04/17/17 10:33 10:38 10:43 Pulse Rate 76 90 75 Blood Pressure 127/75 O2 Sat by Pulse 99 99 99 Oximetry 04/17/17 04/17/17 04/17/17 10:48 10:53 10:58 Pulse Rate 89 87 79 Blood Pressure O2 Sat by Pulse 99 98 97 Oximetry 04/17/17 04/17/17 04/17/17 11:03 11:08 11:13 Pulse Rate 83 81 82 Blood Pressure O2 Sat by Pulse 98 98 98 Oximetry 04/17/17 04/17/17 04/17/17 11:18 11:23 11:28 Pulse Rate 79 75 91 H Blood Pressure O2 Sat by Pulse 99 99 96 Oximetry 04/17/17 04/17/17 04/17/17 11:33 11:38 11:43 Pulse Rate 74 79 94 H Blood Pressure O2 Sat by Pulse 99 98 98 Oximetry 04/17/17 04/17/17 04/17/17 11:48 11:53 11:58 Pulse Rate 81 82 86 Blood Pressure O2 Sat by Pulse 97 99 98 Oximetry 04/17/17 12:03 Pulse Rate 72 Blood Pressure O2 Sat by Pulse 99 Oximetry - Exam Breasts: deferred Abdomen: Present: normal appearance, soft. Absent: distention FHR: category 1 Uterine Contraction Monitor Mode: External Cervical Dilatation: 3.5 Cervical Effacement Percentage: 70 station: -2 Uterine Contraction Pattern: Irregular Uterine Contraction Intensity: Moderate Extremities: normal - Labs Labs: Abnormal Labs 04/15/17 16:47 MCHC 35 H
[2017-04-17] MEDS ORDERED: POLYCILLIN/NS 2 GM/100 ML 2 GM/100 ML BAG IV ONE (12:30)
--- NOTE | 2017-04-17 17:20 | Event Note ---
Date: 04/17/17 SVE . Reassuring heart rate tracing. AROM to augment labor; moderate amount of clear fluid obtained.
[2017-04-17] MEDS ORDERED: ZOFRAN IV PRN (18:11)
[2017-04-17] MEDS ORDERED: TUCKS PAD TP PRN (18:58)
[2017-04-17] MEDS ORDERED: LANSINOH TP PRN (18:58)
[2017-04-17] MEDS ORDERED: MILK OF MAGNESIA PO PRN (18:58)
[2017-04-17] MEDS ORDERED: SODIUM CHLORIDE FLUSH SYRINGE 10 ML IV NR (19:00)
--- NOTE | 2017-04-17 19:10 | Procedure Note ---
OB Delivery Note - Vaginal Delivery presentation: vertex Delivery position: OA Intrapartum events: other(please specify) (cholestasis of ) Delivery induction: oxytocin Delivery monitor: external FHT, external uterine Route of delivery: Delivery placenta: spontaneous Delivery cord: 3 umbilical vessels Episiotomy: none Delivery laceration: none Anesthesia: none Delivery comments: Spontaneous vaginal delivery of liveborn male OA over intact perineum weighing 5 lb. 9 oz. with apgars of 9/9. No anesthesia. Baby placed immediately on maternal abdomen after . Spontaneous cry and respirations. Baby bulb suctioned. 3 vessel cord double clamped and cut after cessation of pulsation. Spontaneous delivery of intact placenta and membranes by bell mechanism. EBL 200 ml. Pitocin to IV fluids after delivery of placenta. Fundus firm and midline. Sponge count correct. Mother and baby stable in birthing room.
[2017-04-17] MEDS ORDERED: PITOCin/NS 20 UNIT/1000ML DRIP 20,000 MILLIUNITS/1,000 ML BAG IV ONE (20:53)
[2017-04-17] MEDS: MOTRIN PO SCH (21:57)
[2017-04-18 09:35] LABS: Hematocrit 33.8 % (30.3-42.9); Hemoglobin 11.3 gm/dl (10.1-14.3)
--- NOTE | 2017-04-18 09:41 | Progress Note ---
Assessment and Plan A: PPD # 1 - stable P: Discharge home in am Subjective - Subjective Date of service: 04/18/17 Principal diagnosis: Patient reports: appetite normal : doing well Objective - Vital Signs Latest vital signs: Vital Signs Temp Pulse Resp BP BP Pulse Ox 04/18/17 07:32 98.0 F 76 18 111/68 99 04/18/17 04:00 98.6 F 66 18 102/76 04/18/17 00:00 98.6 F 66 18 101/76 04/17/17 22:57 18 04/17/17 21:57 16 04/17/17 20:40 98.6 F 81 16 117/74 04/17/17 20:06 73 119/74 04/17/17 19:51 81 111/71 04/17/17 19:45 97.7 F 18 04/17/17 19:36 85 117/71 04/17/17 19:31 75 113/71 04/17/17 19:05 86 134/64 04/17/17 19:01 97.4 F L 86 14 134/64 100 04/17/17 18:38 74 100 04/17/17 18:33 93 H 100 04/17/17 18:28 73 99 04/17/17 18:23 91 H 100 04/17/17 18:18 79 98 04/17/17 18:13 84 99 04/17/17 18:01 77 98 04/17/17 18:00 87 93 04/17/17 17:56 86 98 04/17/17 17:51 105 H 99 04/17/17 17:46 80 99 04/17/17 17:41 82 98 04/17/17 17:35 95 H 98 04/17/17 17:31 89 99 04/17/17 17:26 84 98 04/17/17 17:21 80 98 04/17/17 17:16 76 97 04/17/17 17:11 84 99 04/17/17 17:06 84 99 04/17/17 17:01 80 100 04/17/17 16:55 82 100 04/17/17 16:50 75 100 17 16:45 76 100 17 16:40 87 98 17 16:34 81 98 17 16:30 80 97 10/15/17 16:22 90 98 10/15/17 16:17 81 98 10/15/17 16:12 83 98 10/15/17 16:06 81 98 10/15/17 16:01 77 99 10/15/17 15:56 79 98 10/15/17 15:52 74 98 10/15/17 15:50 80 82 L 10/15/17 15:47 97 H 99 10/15/17 15:41 102 H 98 10/15/17 15:37 90 99 10/15/17 15:32 71 98 10/15/17 15:26 77 97 10/15/17 15:22 76 84 10/15/17 15:21 81 99 10/15/17 15:17 75 99 10/15/17 15:11 75 98 10/15/17 15:07 77 98 10/15/17 15:01 73 98 10/15/17 14:57 70 98 /15/17 14:52 81 98 /15/17 14:46 80 98 10/15/17 14:41 78 98 /15/17 14:36 74 99 10/15/17 14:29 77 98 10/15/17 14:24 75 97 10/15/17 14:19 73 98 10/15/17 14:14 74 98 /15/17 14:09 96 H 99 15/17 14:04 79 97 10/15/17 13:59 74 98 10/15/17 13:54 86 98 10/15/17 13:49 78 99 10/15/17 13:44 77 99 10/15/17 13:39 71 99 10/15/17 13:34 93 H 98 10/15/17 13:29 71 99 10/15/17 13:24 83 99 10/15/17 13:19 74 98 10/15/17 13:12 75 99 10/15/17 13:07 71 98 10/15/17 13:02 76 98 10/15/17 12:57 80 99 10/15/17 12:52 80 98 10/15/17 12:47 75 98 10/15/17 12:42 75 99 10/15/17 12:37 74 98 10/15/17 12:32 76 99 10/15/17 12:27 73 98 10/15/17 12:22 84 98 10/15/17 12:17 72 99 04/17/17 12:08 77 98 04/17/17 12:03 72 99 04/17/17 11:58 86 98 04/17/17 11:53 82 99 04/17/17 11:48 81 97 04/17/17 11:43 94 H 98 04/17/17 11:38 79 98 04/17/17 11:33 74 99 04/17/17 11:28 91 H 96 04/17/17 11:23 75 99 04/17/17 11:18 79 99 04/17/17 11:13 82 98 04/17/17 11:08 81 98 04/17/17 11:03 83 98 04/17/17 10:58 79 97 04/17/17 10:53 87 98 04/17/17 10:48 89 99 04/17/17 10:43 75 99 04/17/17 10:38 90 99 04/17/17 10:33 76 127/75 99 04/17/17 10:17 86 99 04/17/17 10:12 91 H 98 04/17/17 10:07 72 100 04/17/17 10:02 84 100 04/17/17 09:57 77 99 04/17/17 09:52 84 99 04/17/17 09:47 89 99 Intake and Output 04/17/17 04/18/17 04/18/17 22:59 06:59 14:59 Intake Total 314.2 300 Output Total 400 700 Balance -85.8 -400 Intake: IV 14.2 PITOCin/NS 30 UNIT/500ML 14.2 30 units In 500 ml @ Per Protocol IV TITR WICHO Rx#: [id number] Intake, Free Water 300 300 Output: Urine 400 700 Void 400 700 Other: Total, Output Amount 400 700 # Voids Void 1 1 Estimated Blood Loss 200 - Exam Breasts: Present: deferred Cardiovascular: Present: Regular rate Lungs: Present: Clear to auscultation Abdomen: Present: soft Vulva: both: normal Uterus: Present: fundal height below umbilicus Extremities: Present: normal Deep Tendon Reflex Grade: Normal +2
--- NOTE | 2017-04-18 09:42 | Discharge Summary ---
Providers - Providers Date of Admission: 04/15/17 13:28 Date of discharge: 04/19/17 Attending physician: DALE PABLO MD Primary care physician: DALE PABLO MD Hospitalization Reason for admission: induction of labor Delivery: Episiotomy: none Laceration: none Incision: normal Other procedures: none complications: none Discharge diagnosis: IUP at term delivered [place] baby: male Condition at discharge: Good Disposition: DC-01 TO HOME OR SELFCARE Plan - Provider Discharge Summary Activity: no sex for 6 weeks, no strenuous exercise Diet: routine Instructions: routine Additional instructions: [] Smoking cessation referral if applicable(refer to patient education folder for contact #) [] Refer to [facility]'s [facility] Booklet Call your doctor immediately for: * Fever > 100.5 * Heavy vaginal bleeding ( >1 pad per hour) * Severe persistent headache * Shortness of breath * Reddened, hot, painful area to leg or breast * Drainage or odor from incision. * Keep incision clean and dry at all times and follow doctor's instructions regarding bathing/showering - Follow up plan Follow up: DALE PABLO MD [Primary Care Provider] - 6 Weeks
[2017-04-18] MEDS: MOTRIN PO SCH ×3 (12:20→23:46)
[2017-04-19] MEDS: MOTRIN PO SCH ×2 (05:44→12:39)
[2017-04-19 16:46] VITALS: BP 114/70
== END 2017-04-19 17:14 | disposition home or self-care (01) | DRG 775 ==
LOC: TRG 13:27 → LD 13:28 → TRG 14:33 → OB 04-17 20:39
PROVIDERS: ADMIT Obstetrics & Gynecology; ATTEND Obstetrics & Gynecology
PROC: 10E0XZZ Delivery of Products of Conception, External Approach (ICD-10-PCS; principal; 2017-04-15)
PROC: 3E0P3VZ Introduction of Hormone into Female Reproductive, Percutaneous Approach (ICD-10-PCS; 2017-04-15)
DX: O26.62 Liver and biliary tract disorders in childbirth (principal); K83.1 Obstruction of bile duct; Z37.0 Single live birth; O99.824 Streptococcus B carrier state complicating childbirth; Z3A.36 36 weeks gestation of pregnancy
CPT/HCPCS: 36415; 59200; 85014; 85018; 85027; 86850; 86900; 86901; 90471; 99211; G0008; G0463; J0290; J2405; J2590; J7120